=== PATIENT | male | born 1940 | race Caucasian/White ===

== ENCOUNTER 2023-02-11 08:44 | Outpatient (CLI) | payer MEDICARE ==
[2023-02-11] MEDS ORDERED: Magnevist 469MG/ML 20 ML VIAL ONE (09:59)
== END 2023-02-11 08:45 | disposition home or self-care (01) ==
LOC: MRI 08:44
PROVIDERS: ATTEND Internal Medicine Hematology & Oncology
DX: C16.0 Malignant neoplasm of cardia (principal); I77.1 Stricture of artery; I87.1 Compression of vein
CPT/HCPCS: 74183; 78815; A9552; A9579

== ENCOUNTER 2023-05-22 10:00 | Outpatient (CLI) | payer MEDICARE | END 2023-05-22 10:01 | disposition home or self-care (01) | LOC: PET 10:00 | PROVIDERS: ATTEND Internal Medicine Hematology & Oncology | DX: C16.9 Malignant neoplasm of stomach, unspecified (principal); K31.9 Disease of stomach and duodenum, unspecified | CPT/HCPCS: 78815; A9552 ==